=== PATIENT | male | born 1950 | race Caucasian/White ===

== ENCOUNTER → 2023-01-16 | Outpatient (CLI) | payer MEDICARE ==
[~2023-01-16] MED LIST: BENADRYL25 MG PO; MEDROL DOSEPAK4 MG PO
[2023-01-16 08:02] LABS: HEMATOCRIT 41.6 % (42.0-52.0); MEAN CELL VOLUME 97.7 fl (80.0-94.0); MEAN CORPUSCULAR HGB 32.2 pg (27.0-31.0); MEAN CORPUSCULAR HGB CONC 32.9 g/dl (33.0-37.0); RED BLOOD COUNT 4.26 10*6/uL (4.50-5.90); RED CELL DISTRI WIDTH 15.3 % (0-14.5); WHITE BLOOD COUNT 6.7 10*3/uL (4.8-10.8)
[2023-01-16 08:45] LABS: ALKALINE PHOSPHATASE 106 U/L (46-116); BUN 11 mg/dl (9-23); CHLORIDE 106 mmol/L (98-107); CHOLESTEROL 164 mg/dL (<200); FREE T4 1.02 ng/dl (0.89-1.76); LDL CHOLESTEROL 97 mg/dL (9-159); POTASSIUM 4.4 mmol/L (3.4-5.1); SGPT/ALT 18 U/L (5-49); TOTAL PROTEIN 7.2 gm/dL (6.0-8.0); TRIGLYCERIDES 86 mg/dl (<150)
[2023-01-16 09:07] LABS: VITAMIN D, 25-HYDROXY 73.3 ng/mL (30-100)
== END | disposition home or self-care (01) ==
LOC: LAB 07:44
PROVIDERS: ATTEND Family Medicine
DX: C34.90 Malignant neoplasm of unspecified part of unspecified bronchus or lung (principal); E11.9 Type 2 diabetes mellitus without complications; R53.82 Chronic fatigue, unspecified; R05.9 Cough, unspecified; E78.00 Pure hypercholesterolemia, unspecified; M54.50 Low back pain, unspecified; G57.00 Lesion of sciatic nerve, unspecified lower limb; R00.2 Palpitations; E55.9 Vitamin D deficiency, unspecified; M43.10 Spondylolisthesis, site unspecified; M43.17 Spondylolisthesis, lumbosacral region; M43.27 Fusion of spine, lumbosacral region; I51.7 Cardiomegaly; M47.814 Spondylosis without myelopathy or radiculopathy, thoracic region; J84.10 Pulmonary fibrosis, unspecified

== ENCOUNTER → 2023-01-26 | Outpatient (CLI) | payer MEDICARE | LOC: LAB 07:03 | PROVIDERS: ATTEND Family Medicine | DX: Z12.5 Encounter for screening for malignant neoplasm of prostate (principal) ==

== ENCOUNTER → 2023-01-28 | Outpatient (CLI) | payer MEDICARE | END | disposition home or self-care (01) | LOC: CT 07:50 | PROVIDERS: ATTEND Family Medicine | DX: C34.32 Malignant neoplasm of lower lobe, left bronchus or lung (principal); R07.9 Chest pain, unspecified; J84.10 Pulmonary fibrosis, unspecified; J43.9 Emphysema, unspecified; J18.9 Pneumonia, unspecified organism ==

== ENCOUNTER 2023-03-17 11:00 | Emergency (ER) | payer MEDICARE | END 2023-03-17 11:27 | disposition left against medical advice (07) | LOC: ED 11:00 | DX: R05.9 Cough, unspecified (principal); Z88.8 Allergy status to other drugs, medicaments and biological substances; Z91.040 Latex allergy status; Z53.21 Procedure and treatment not carried out due to patient leaving prior to being seen by health care provider ==

== ENCOUNTER 2023-03-17 12:26 | Emergency (ER) | payer MEDICARE ==
[~2023-03-17] VITALS: Ht 172.7 cm; Wt 74.4 kg
== END 2023-03-17 16:53 | disposition left against medical advice (07) ==
LOC: ED 12:26
DX: R04.2 Hemoptysis (principal); E11.9 Type 2 diabetes mellitus without complications; I10 Essential (primary) hypertension; E78.5 Hyperlipidemia, unspecified; Z88.8 Allergy status to other drugs, medicaments and biological substances; Z91.040 Latex allergy status; Z20.822 Contact with and (suspected) exposure to COVID-19; Z53.21 Procedure and treatment not carried out due to patient leaving prior to being seen by health care provider